=== PATIENT | male | born 2005 | race Caucasian/White ===

== ENCOUNTER 2024-05-06 11:21 | Outpatient (RCR) | payer BC, SELFPAY | END 2024-09-03 23:59 | disposition home or self-care (01) | PROVIDERS: Visit Provider Family Medicine | DX: S06.0X0A Concussion without loss of consciousness, initial encounter (principal); H81.90 Unspecified disorder of vestibular function, unspecified ear; Z51.89 Encounter for other specified aftercare | CPT/HCPCS: 97110; 97140; 97161 ==

== ENCOUNTER 2024-12-01 17:00 | Outpatient (RCR) | payer BC, SELFPAY | END 2024-12-03 08:18 | disposition home or self-care (01) | PROVIDERS: Visit Provider Family Medicine | DX: S76.312A Strain of muscle, fascia and tendon of the posterior muscle group at thigh level, left thigh, initial encounter (principal); Z51.89 Encounter for other specified aftercare | CPT/HCPCS: 97110; 97140; 97161 ==